=== PATIENT | female | born 1980 | race Caucasian/White ===

== ENCOUNTER 2022-10-09 22:33 | Observation (INO) ==
--- NOTE | 2022-10-09 22:57 | Emergency Department Note ---
History of Present Illness General Chief complaint: Kidney Stone Stated complaint: REF BY DOC,LARGE KIDNEY STONE,BLOCKING URETER Time Seen by Provider: 10/09/22 22:47 History of Present Illness 42-year-old female presents emergency department with an onset 3 days ago of left flank pain she felt that she was constipated she was doubled over in pain and had nausea. Patient started to use laxatives. Patient continued to have intermittent pain despite taking Tylenol and then was at her son's baseball game yesterday and had excruciating left flank pain and abdominal pain. Patient was also taking mag citrate. Patient states that she went to see her [facility] family physician today and had outpatient labs as well as a CT that showed an obstructed kidney stone. Patient has no prior history of kidney stones patient currently states that her pain is 0. Patient states its intermittent in nature its located in the left side there were no other mitigating or alleviating factors. Patient of note CT abdomen pelvis that was reported from [facility] today she has a 5 mm proximal ureteral stone with this present she also has a creatinine of 1.8 and appears to be positive for urinary tract infection. Home Medications Medication Instructions Recorded Confirmed Type cholecalciferol (vitamin D3) 25 25 mcg PO DAILY 11/17/20 10/09/22 History mcg (1,000 unit) capsule calcium polycarbophil 625 mg 1,250 mg PO DAILY 11/21/21 10/09/22 History tablet (Fiber Laxative (calcium polycarbophil)) cetirizine 10 mg capsule (All Day 10 mg PO DAILY PRN Congestion 11/21/21 10/09/22 History Allergy (cetirizine)) cider 1 tab PO DAILY 11/21/21 10/09/22 History yrgijww-Tx-kwsnzoslsmprtczm-tea 500 mg-100 mcg-300 mg-60 mg tab (Apple Cider Vinegar Plus) magnesium citrate 125 mg capsule 125 mg PO DAILY 11/21/21 10/09/22 History mecobalamin (vitamin B12) 1,000 1,000 mcg PO DAILY 11/21/21 10/09/22 History mcg chewable tablet omega 3,6,9 combination no.7 92 mg 92 mg PO DAILY 11/21/21 10/09/22 History (43 mg-22 [id number]) chew tablet furosemide 20 mg tablet (Lasix) 20 mg PO DAILY #90 tabs 12/18/21 10/09/22 Rx buspirone 10 mg tablet 10 mg PO BID #180 tabs 07/16/22 10/09/22 Rx lisinopril 10 mg tablet 15 mg PO DAILY #135 tabs 08/13/22 10/09/22 Rx bupropion HCl 100 mg tablet 100 mg PO DAILY #90 tabs 09/05/22 10/09/22 Rx semaglutide (weight loss) 0.25 0.25 mg (0.5 mL) subcut Q7D #2 mL 09/20/22 10/09/22 Rx mg/0.5 mL subcutaneous pen injector (Wegovy) ciprofloxacin HCl 500 mg tablet 500 mg PO BID 10 days #20 tabs 10/09/22 10/09/22 Rx (Cipro) Allergies Allergy/AdvReac Type Severity Reaction Status Date / Time No Known Allergies Allergy Verified 10/09/22 22:58 Past Med/Surg History Social History Smoking Status: Never smoker Preferred Language: Greek Feels Safe at Home: Yes Immunizations: Past medical history includes hypertension, past surgical history cholecystectomy, no prior history of ureterolithiasis; remainder of the past medical history was reviewed in the patient's chart by me Review of Systems A total of 10 systems reviewed and were otherwise negative Gastrointestinal: + abdominal pain and + nausea Genitourinary (Female): + flank pain Physical Exam Vital Signs Vital Signs - 24 hr 10/09/22 22:35 10/10/22 01:00 Temperature 36.2 C L Temperature Source Temporal Artery Scan Pulse Rate 83 Pulse Rate [Right Finger] 71 Pulse Rhythm Regular Pulse Strength Normal Respiratory Rate 19 14 Respiratory Effort / Characteristics Non-Labored Spontaneous Non-Labored Spontaneous Respiratory Depth Normal Normal Respiratory Pattern Regular Regular Blood Pressure 154/95 H Blood Pressure [Right Arm] 116/73 Blood Pressure Mean 114 Blood Pressure Mean [Right Arm] 87 Blood Pressure Position Sitting Pulse Oximetry 99 97 Oxygen Delivery Method Room Air Room Air Sepsis Recent Fever Within 48 Hours No Sepsis New/Unexplained Change in Mental Status N/A Sepsis Action Taken by Nursing No Action Required GENERAL: Patient is awake alert in no acute distress patient is resting com fortably and showing no signs of anxiety EYES: The conjunctivae are clear. The pupils are round and reactive. EARS, NOSE, MOUTH AND THROAT: The nose is without any evidence of any deformity. Mucous membranes are moist. Tongue is midline. NECK: The neck is nontender and supple. RESPIRATORY: Normal respiratory effort is noted there is no evidence of wheezing rhonchi or rales CARDIOVASCULAR: Regular rate and rhythm noted there no murmurs rubs or gallops normal S1 normal S2. GASTROINTESTINAL: The abdomen is soft. Abdomen is nontender. No rebound rigidity or guarding BACK: No midline tenderness or or step-off noted range of motion in flexion extension as well as rotation no signs of muscle spasm noted ; no CVAT noted MUSCULOSKELETAL/EXTREMITIES: There is no evidence of gross deformity full range of motion is noted in the hips and shoulders. SKIN: There is no obvious evidence of any rash. There are no petechiae, pallor or cyanosis noted. NEUROLOGIC: Patient is awake alert and oriented x3 strength is symmetric Course Reevaluation(s) Reevaluation #1: Patient is resting in no distress on repeat examination. Time: 23:52 Consultations Consultation #1: Case was discussed with Patrick from urology for consultation Time: 23:15 Consultation #2: Case was discussed with the [facility] hospitalist for admission for ure terolithiasis, DEBRA, urinary tract infection Time: 23:53 Administered Medications Discontinued Medications Sodium Chloride (Nss 1000ml) 1,000 mls @ 999 mls/hr IV .Q1H1M STA Stop: 10/09/22 23:59 Last Infusion: 10/10/22 01:23 Dose: 0 mls/hr Documented By: Admin: 10/10/22 00:04 Dose: 999 mls/hr Documented By: ARELIS Ceftriaxone Sodium (Rocephin) 2,000 mg in 70 mls @ 140 mls/hr IV NOW STA Stop: 10/09/22 23:28 Last Infusion: 10/10/22 00:42 Dose: 0 mls/hr Documented By: Admin: 10/10/22 00:04 Dose: 140 mls/hr Documented By: ARELIS Tamsulosin HCl (Tamsulosin Hcl 0.4 Mg Cap) 0.4 mg PO NOW ONE Stop: 10/09/22 23:34 Last Admin: 10/10/22 00:04 Dose: 0.4 mg Documented By: ARELIS Medical Decision Making Medical Records Attestation: I reviewed the patient's medical records. Home Medications Current Medication List: was personally reviewed by me Laboratory Data Attestation: I reviewed the patient's lab results. Reviewed external labs from today patient's creatinine is 1.8 patient has a urinary tract infection 10/09/22 23:32 10/09/22 23:32 Lab Results 10/09/22 10/09/22 10/10/22 Range/Units 23:32 23:32 00:05 WBC 5.44 (4.8-10.8) K/ul RBC 4.27 (4.20-5.40) M/uL Hgb 13.1 (12.0-16.0) g/dl Hct 38.6 (37.0-47.0) % MCV 90.4 (80.0-100.0) fL MCH 30.7 (25.0-34.0) pg MCHC 33.9 (32.0-36.0) g/dL RDW Std Deviation 38.8 (36.4-46.3) fL RDW Coeff of Claudia 11.9 (11.5-14.5) % Plt Count 208 (130-400) K/uL MPV 11.1 (9.4-12.4) fL Immature Gran % (Auto) 0.4 % Neut % (Auto) 60.2 % Lymph % (Auto) 28.3 % Snyder % (Auto) 8.3 % Eos % (Auto) 1.7 % Baso % (Auto) 1.1 % Neut # (Auto) 3.28 (1.40-6.50) K/uL Lymph # (Auto) 1.54 (1.2-3.4) K/uL Snyder # (Auto) 0.45 (0.11-0.59) K/uL Eos # (Auto) 0.09 (0-0.50) K/uL Baso # (Auto) 0.06 (0-0.2) K/uL Immature Gran # (Auto) 0.02 (0.01-0.20) K/uL Sodium 138 (136-145) mmol/L Potassium 4.3 (3.5-5.1) mmol/L Chloride 104 (98-107) mmol/L Carbon Dioxide 28 (21-32) mmol/L Anion Gap 6 (3-11) BUN 20 (6-23) mg/dl Creatinine 1.65 H (0.6-1.2) mg/dl Est Cr Clr Drug Dosing 43.3 ml/min Est GFR ( Amer) 43.3 ml/min Est GFR (Non-Af Amer) 37.4 ml/min BUN/Creatinine Ratio 12.1 (10-20) Glucose 96 (70-99(Fasting)) mg/dl Calcium 9.4 (8.6-10.3) mg/dl Total Bilirubin 0.6 (0.2-1.0) mg/dl AST 18 (13-39) U/L ALT 12 (7-52) U/L Alkaline Phosphatase 50 (34-104) U/L Total Protein 7.1 (6.0-8.3) gm/dl Albumin 4.1 (3.4-5.0) gm/dl Globulin 3.0 (2.5-4.0) gm/dl Albumin/Globulin Ratio 1.4 (0.9-2) Urine Color Dark Yellow Urine Appearance Cloudy A (Clear) Urine pH 5.5 (4.5-7.5) Ur Specific [place] 1.029 (1.000-1.030) Urine Protein 1+ H (Negative) Urine Glucose (UA) Negative (Negative) Urine Ketones Trace H (Negative) Urine Blood 3+ H (Negative) Urine Nitrite Negative (Negative) Urine Bilirubin 1+ H (Negative) Urine Urobilinogen Negative (Negative) Ur Leukocyte Esterase 1+ H (Negative) Urine WBC (Auto) 5-10 H (0-5) /hpf Urine RBC (Auto) >30 H (0-4) /hpf U Hyaline Cast (Auto) 1-5 (0-5) /lpf U Epithel Cells (Auto) >30 H (0-5) /lpf Urine Bacteria (Auto) Negative (Negative) SARS-CoV-2, RNA, NAAT (NEGATIVE) 10/10/22 Range/Units 00:15 WBC (4.8-10.8) K/ul RBC (4.20-5.40) M/uL Hgb (12.0-16.0) g/dl Hct (37.0-47.0) % MCV (80.0-100.0) fL MCH (25.0-34.0) pg MCHC (32.0-36.0) g/dL RDW Std Deviation (36.4-46.3) fL RDW Coeff of Claudia (11.5-14.5) % Plt Count (130-400) K/uL MPV (9.4-12.4) fL Immature Gran % (Auto) % Neut % (Auto) % Lymph % (Auto) % Snyder % (Auto) % Eos % (Auto) % Baso % (Auto) % Neut # (Auto) (1.40-6.50) K/uL Lymph # (Auto) (1.2-3.4) K/uL Snyder # (Auto) (0.11-0.59) K/uL Eos # (Auto) (0-0.50) K/uL Baso # (Auto) (0-0.2) K/uL Immature Gran # (Auto) (0.01-0.20) K/uL Sodium (136-145) mmol/L Potassium (3.5-5.1) mmol/L Chloride (98-107) mmol/L Carbon Dioxide (21-32) mmol/L Anion Gap (3-11) BUN (6-23) mg/dl Creatinine (0.6-1.2) mg/dl Est Cr Clr Drug Dosing ml/min Est GFR ( Amer) ml/min Est GFR (Non-Af Amer) ml/min BUN/Creatinine Ratio (10-20) Glucose (70-99(Fasting)) mg/dl Calcium (8.6-10.3) mg/dl Total Bilirubin (0.2-1.0) mg/dl AST (13-39) U/L ALT (7-52) U/L Alkaline Phosphatase (34-104) U/L Total Protein (6.0-8.3) gm/dl Albumin (3.4-5.0) gm/dl Globulin (2.5-4.0) gm/dl Albumin/Globulin Ratio (0.9-2) Urine Color Urine Appearance (Clear) Urine pH (4.5-7.5) Ur Specific [place] (1.000-1.030) Urine Protein (Negative) Urine Glucose (UA) (Negative) Urine Ketones (Negative) Urine Blood (Negative) Urine Nitrite (Negative) Urine Bilirubin (Negative) Urine Urobilinogen (Negative) Ur Leukocyte Esterase (Negative) Urine WBC (Auto) (0-5) /hpf Urine RBC (Auto) (0-4) /hpf U Hyaline Cast (Auto) (0-5) /lpf U Epithel Cells (Auto) (0-5) /lpf Urine Bacteria (Auto) (Negative) SARS-CoV-2, RNA, NAAT NEGATIVE (NEGATIVE) Imaging Data Attestation: I personally reviewed and interpreted this imaging study as follows: My Impression: Reviewed the patient's CT result from [facility] today stating a 5 mm proximal ureteral stone MDM Narrative Medical decision making differential diagnosis includes ureterolithiasis, bowel obstruction, dehydration, electrolyte abnormality, DEBRA, urinary tract infection Plan is to check repeat labs, give IV fluids give IV Rocephin, consult with urology Patient clinically has no evidence of septic shock at this time. Patient was started on IV fluids, Rocephin; patient will be admitted for further urologic evaluation and treatment Impression & Plan Ureterolithiasis, DEBRA (acute kidney injury), UTI (urinary tract infection) Discharge Plan Visit Data Chief Complaint: Kidney Stone Stated Complaint: REF BY DOC,LARGE KIDNEY STONE,BLOCKING URETER ED Provider: Valeriy Harris Discharge Problem: Ureterolithiasis, DEBRA (acute kidney injury), UTI (urinary tract infection) Patient Disposition: Admitted As Inpatient Forms Stand Alone Forms: My [facility] Prescriptions Prescriptions: No Action furosemide [Lasix] 20 mg tablet 20 mg PO DAILY Qty: 90 3RF buspirone 10 mg tablet 10 mg PO BID Qty: 180 0RF lisinopril 10 mg tablet 15 mg PO DAILY Qty: 135 3RF bupropion HCl 100 mg tablet 100 mg PO DAILY Qty: 90 0RF Wegovy 0.25 mg/0.5 mL pen injector 0.25 mg subcut Q7D Qty: 2 0RF Rx Instructions: [place] cholecalciferol (vitamin D3) 25 mcg (1,000 unit) capsule 25 mcg PO DAILY omega 3,6,9 combination no.7 92 mg (43 mg-22 [id number]) tablet,chewable 92 mg PO DAILY mecobalamin (vitamin B12) 1,000 mcg tablet,chewable 1,000 mcg PO DAILY Apple Cider Vinegar Plus [phone] [id number]-mg tablet 1 tab PO DAILY magnesium citrate 125 mg capsule 125 mg PO DAILY calcium polycarbophil [Fiber Laxative (ca polycarbo)] 625 mg tablet 1,250 mg PO DAILY All Day Allergy (cetirizine) 10 mg capsule 10 mg PO DAILY PRN (Reason: Congestion) ciprofloxacin HCl [Cipro] 500 mg tablet 500 mg PO BID 10 Days Qty: 20 0RF Rx Instructions: DID NOT START YET, PER PT'S MD. Referrals Referrals: Nathaniel Khoury DO [Primary Care Provider] -
[2022-10-09] MEDS ORDERED: SODIUM CHLORIDE 0.9% 1000ML 1,000 ML IV STA (22:59)
[2022-10-09] MEDS ORDERED: cefTRIAXone SODIUM 2,000 MG/70 ML BAG IV STA (22:59)
[2022-10-09] MEDS ORDERED: TAMSULOSIN HCL 0.4 MG CAP PO ONE (23:33)
--- NOTE | 2022-10-09 23:35 | Urology Consultation ---
Date of Consultation October 09, 2022 Assessment & Plan (1) Ureterolithiasis: I discussed with the treating emergency room physician and the patient is being admitted on the hospitalist service. From a urologic perspective we recommend proceeding as follows: Provide analgesics Provide antiemetics Provide Flomax for expulsive therapy. I have ordered the first dose of this medication Antibiotics in form of Rocephin have been ordered by the treating emergency room physician. A urine culture has been ordered and these results to be followed. Antibiotics be tailored based on these results Hydration measures with intravenous fluids to be provided Implement n.p.o. status. At the present time the patient is afebrile and normotensive without tachycardia and there is no leukocytosis noted on her previous labs. Although the patient does have an elevated creatinine I feel a trial of conservative stone passage with the measures outlined above is reasonable. We will keep her n.p.o. as noted above that way she will be prepared for cystoscopy if it is felt that this is required after reevaluation the morning of 10/10/2022 Additional recommendations will be based on her clinical course as unfolds History of Present Illness Reason for Consultation: Nephrolithiasis History of Present Illness This is a 42-year-old female who was referred to the emergency department by her family physician. The patient has been complaining of some left flank pain for approximately 3 days. The pain is nonradiating. She does not have any associated nausea or vomiting and she denies any fevers, shakes, or chills. She notes that the pain is improved when she takes Tylenol and Aleve. The patient felt as though she was just suffering from constipation and she took some zmjz-kda-iedbvyv home remedies with some relief. She does continue to have some left flank pain today so she saw her family physician who ordered an outpatient CT scan as well as some labs which are listed below. With her current presentation the patient denies any dysuria or hematuria. She says that she is only urinating small amounts. She has no prior history of kidney stones. Earlier today this patient had an outpatient CT scan at a [facility] facility. The CT scan showed patient had a 5 mm left-sided kidney stone in the proximal left ureter resulting in hydronephrosis. Patient also had labs performed as an outpatient that showed a CBC with normal white blood cell count, hemoglobin, hematocrit, platelet count. Chemistry profile showed sodium and potassium are both normal. Her BUN was normal but her creatinine which was usually normal is now 1.8. Patient did have a urinalysis that appears to be infected. There is no bacteria in the study, but the patient did have 1+ leukocyte Estrace and positive nitrites. There were 10-30 white blood cells per high-power field. She also had a test that was noted to be negative. Because of the findings on her labs and CT scan she was referred to the emergency department by her family physician. I did question the patient on her activities of daily living and the patient says that she does exercise daily oftentimes running. She says she does not have any limiting factors such as chest pain or exertional dyspnea. At the time of my interview she was resting comfortably in bed and she was in no distress Concerning past medical history the patient is treated for hypertension. Concerning past surgical history she has had a cholecystectomy Concerning social history she is a non-smoker Concerning family history she says her mother was recently diagnosed with aortic stenosis and was told that this is a hereditary condition. The patient could not provide any other specific details regarding this disease process. Allergies Allergy/AdvReac Type Severity Reaction Status Date / Time No Known Allergies Allergy Verified 10/09/22 22:58 Home Medications Medication Instructions Recorded Confirmed Type cholecalciferol (vitamin D3) 25 25 mcg PO DAILY 11/17/20 10/09/22 History mcg (1,000 unit) capsule calcium polycarbophil 625 mg 1,250 mg PO DAILY 11/21/21 10/09/22 History tablet (Fiber Laxative (calcium polycarbophil)) cetirizine 10 mg capsule (All Day 10 mg PO DAILY PRN Congestion 11/21/21 10/09/22 History Allergy (cetirizine)) cider 1 tab PO DAILY 11/21/21 10/09/22 History fvnonsz-Uj-kdalodtxwpeygyee-tea 500 mg-100 mcg-300 mg-60 mg tab (Apple Cider Vinegar Plus) magnesium citrate 125 mg capsule 125 mg PO DAILY 11/21/21 10/09/22 History mecobalamin (vitamin B12) 1,000 1,000 mcg PO DAILY 11/21/21 10/09/22 History mcg chewable tablet omega 3,6,9 combination no.7 92 mg 92 mg PO DAILY 11/21/21 10/09/22 History (43 mg-22 [id number]) chew tablet furosemide 20 mg tablet (Lasix) 20 mg PO DAILY #90 tabs 12/18/21 10/09/22 Rx buspirone 10 mg tablet 10 mg PO BID #180 tabs 07/16/22 10/09/22 Rx lisinopril 10 mg tablet 15 mg PO DAILY #135 tabs 08/13/22 10/09/22 Rx bupropion HCl 100 mg tablet 100 mg PO DAILY #90 tabs 09/05/22 10/09/22 Rx semaglutide (weight loss) 0.25 0.25 mg (0.5 mL) subcut Q7D #2 mL 09/20/22 10/09/22 Rx mg/0.5 mL subcutaneous pen injector (Wegovy) ciprofloxacin HCl 500 mg tablet 500 mg PO BID 10 days #20 tabs 10/09/22 10/09/22 Rx (Cipro) Patient History Social History Smoking Status: Never smoker Preferred Language: Malay Feels Safe at Home: Yes Review of Systems Constitutional: no fever and no chills Ear, Nose, Mouth, Throat: no ear pain Respiratory: no cough Cardiovascular: no chest pain Gastrointestinal: no nausea and no vomiting Genitourinary: as per Subjective / HPI Musculoskeletal: + back pain (Left flank) Integumentary: no rash Neurologic: no localized weakness Physical Exam Constitutional: WD/WN, vitals as above Eyes: no conjunctival abnormality ENMT: Ears: no hearing impairment and no external ear abnormality Mouth: no oropharynx abnormality Neck: trachea midline Respiratory: normal respiratory effort, lungs clear to auscultation Cardiovascular: Rate/Rhythm: regular rate and regular rhythm Vessels: dorsalis pedis pulses present and radial pulses present Gastrointestinal (Abdomen): Abdomen is soft and nonrigid. It is nondistended. There is no pain with palpation. Musculoskeletal: No calf tenderness Skin: no rashes Neurologic: moves all extremities Psychiatric: A+Ox3, euthymic affect Genitourinary: Slight CVA tenderness noted on the left with percussion Results & Data Vital Signs (Past 12 Hours) Vital Signs Temp Pulse Resp BP Pulse Ox O2 Del Method 10/09/22 22:35 36.2 C L 83 19 154/95 H 99 Room Air PG Care Time/CCT Total # of Minutes Spent Total Time Spent with Patient: Total time spent is greater than 50% in coordination of care (as documented) at patient's floor/unit and/or counseling patient: Coding Level of Care Code 42655 IN/OBS CONSULT LVL 5,80M Diagnoses Ureterolithiasis N20.1
[2022-10-09 23:55] LABS: Basophils # (auto) 0.06 K/uL (0-0.2); Basophils % (auto) 1.1 %; Eosinophils # (auto) 0.09 K/uL (0-0.50); Eosinophils % (auto) 1.7 %; Hematocrit (blood only) 38.6 % (37.0-47.0); Hemoglobin 13.1 g/dl (12.0-16.0); Immature Granulocytes # (auto) 0.02 K/uL (0.01-0.20); Immature Granulocytes % (auto) 0.4 %; Lymphocytes # (auto) 1.54 K/uL (1.2-3.4); Lymphocytes % (auto) 28.3 %; Mean Corpuscular Hemoglobin 30.7 pg (25.0-34.0); Mean Corpuscular Hgb Conc 33.9 g/dL (32.0-36.0); Mean Corpuscular Volume 90.4 fL (80.0-100.0); Mean Platelet Volume 11.1 fL (9.4-12.4); Monocytes # (auto) 0.45 K/uL (0.11-0.59); Monocytes % (auto) 8.3 %; Neutrophils # (auto) 3.28 K/uL (1.40-6.50); Neutrophils % (auto) 60.2 %; Platelet Count 208 K/uL (130-400); RDW Coefficient of Variation 11.9 % (11.5-14.5); RDW Standard Deviation 38.8 fL (36.4-46.3); Red Blood Count 4.27 M/uL (4.20-5.40); White Blood Count 5.44 K/ul (4.8-10.8)
[2022-10-10 00:07] LABS: Albumin Globulin Ratio 1.4 (0.9-2); Albumin Level 4.1 gm/dl (3.4-5.0); BUN Creatinine Ratio 12.1 (10-20); Bilirubin,Total 0.6 mg/dl (0.2-1.0); Calcium 9.4 mg/dl (8.6-10.3); Creatinine Clr Calc Pharmacy 43.3 ml/min; Est GFR (African American) 43.3 ml/min; Est GFR (Non-African American) 37.4 ml/min; Potassium 4.3 mmol/L (3.5-5.1); Total Protein 7.1 gm/dl (6.0-8.3)
--- NOTE | 2022-10-10 00:14 | History & Physical Report ---
Date of Service October 10, 2022 Assessment & Plan (1) Left ureteral stone: (2) Hydronephrosis of left kidney: (3) DEBRA (acute kidney injury): (4) UTI (urinary tract infection): (5) HTN (hypertension): (6) Situational anxiety: Plan 5 mm left ureteral stone/left hydroureteronephrosis- NPO NSS at 100 mils per hour Follow urine culture and sensitivity Ceftriaxone 2 g IV daily Acetaminophen 650 mg p.o. every 6 hours as needed for mild pain or fever Morphine sulfate 2 mg IV every 3 hours as needed for moderate to severe pain Flomax 0.4 mg p.o. now Consult to urology Acute kidney injury- Creatinine 1.83 on admission, with base 1.01 Hold furosemide and lisinopril IV fluids as noted above Repeat laboratories in a.m. Anxiety- Continue buspirone 10 mg p.o. twice daily and bupropion 100 mg p.o. daily Weight loss- Patient is on semaglutide weekly in the outpatient setting for weight management, not diabetes History of Present Illness Chief Complaint: The patient presents to the emergency department with complaint of 3 days of left-sided flank pain, that she interpreted as constipation causing her to have nausea, and had no improvement after using bowel regimen successfully Primary Care Provider: Nathaniel Khoury DO The patient is a 42-year-old female who initially developed left flank pain about 3 days ago, that was accompanied with nausea. She tried using laxatives which helped move her bowels, but did not relieve the pain. She went to see her PCP due to a worsening of the pain, was sent for a CT scan of abdomen and pel vis, which revealed a 5 mm left ureteral stone and left hydronephrosis. She was then referred to the ED for assessment. She does report that the pain initially had been improved by Tylenol, but the pain and nausea returned as soon as the Tylenol wore off Allergies Allergy/AdvReac Type Severity Reaction Status Date / Time No Known Allergies Allergy Verified 10/09/22 22:58 Home Medications Medication Instructions Recorded Confirmed Type cholecalciferol (vitamin D3) 25 25 mcg PO DAILY 11/17/20 10/09/22 History mcg (1,000 unit) capsule calcium polycarbophil 625 mg 1,250 mg PO DAILY 11/21/21 10/09/22 History tablet (Fiber Laxative (calcium polycarbophil)) cetirizine 10 mg capsule (All Day 10 mg PO DAILY PRN Congestion 11/21/21 10/09/22 History Allergy (cetirizine)) cider 1 tab PO DAILY 11/21/21 10/09/22 History uictoif-Mk-qbobnhhcuglcyees-tea 500 mg-100 mcg-300 mg-60 mg tab (Apple Cider Vinegar Plus) magnesium citrate 125 mg capsule 125 mg PO DAILY 11/21/21 10/09/22 History mecobalamin (vitamin B12) 1,000 1,000 mcg PO DAILY 11/21/21 10/09/22 History mcg chewable tablet omega 3,6,9 combination no.7 92 mg 92 mg PO DAILY 11/21/21 10/09/22 History (43 mg-22 [id number]) chew tablet furosemide 20 mg tablet (Lasix) 20 mg PO DAILY #90 tabs 12/18/21 10/09/22 Rx buspirone 10 mg tablet 10 mg PO BID #180 tabs 07/16/22 10/09/22 Rx lisinopril 10 mg tablet 15 mg PO DAILY #135 tabs 08/13/22 10/09/22 Rx bupropion HCl 100 mg tablet 100 mg PO DAILY #90 tabs 09/05/22 10/09/22 Rx semaglutide (weight loss) 0.25 0.25 mg (0.5 mL) subcut Q7D #2 mL 09/20/22 10/09/22 Rx mg/0.5 mL subcutaneous pen injector (Wegovy) ciprofloxacin HCl 500 mg tablet 500 mg PO BID 10 days #20 tabs 10/09/22 10/09/22 Rx (Cipro) Past Med/Surg History Social History Smoking Status: Never smoker Hx Alcohol Use: No Hx Substance Use: No Preferred Language: Angolan Communication Ability: Effective 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 Beliefs That Will Affect Care: None Current Living Situation: Spouse Other Information That Helps Us Care for You: No Feels Safe at Home: Yes Safety Concerns: Feels Safe At This Time Assistive Devices: Contacts and Glasses Review of Systems Review of Systems: The patient denies chest pain, palpitations, shortness of breath, dyspnea on exertion, cough, lower extremity swelling, sore throat, fevers, chills, sweats, vomiting, blood in urine or stool, dysuria, urinary frequency or urgency, lightheadedness, dizziness, headache, memory loss, loss of consciousness, rash, abnormal bruising or bleeding, imbalance, focal or generalized weakness, numbness or tingling in arms or legs, generalized arthralgias or myalgias, neck pain, or night sweats. The review of systems is otherwise negative other than for that already noted above, and at least 10 systems have been reviewed. Physical Exam Physical Exam: The patient is awake, alert and oriented 3, well developed and well nourished, normocephalic and atraumatic, lying in bed and in no acute distress. HEENT--PERRL, EOMI, mucous membranes and oropharynx dry. Neck--supple. No JVD. No bruits. Thyroid normal, trachea midline, no adenopathy. Heart--normal S1 and S2. No murmurs, rubs or gallops. Lungs--clear bilaterally, no respiratory distress, no accessory muscle use. Abdomen--normal bowel sounds and soft. Nontender. Nondistended, no hernias or masses, no organomegaly. Extremities--no cyanosis or clubbing. No edema. There are good distal pulses b/l. Dermatologic--normal skin turgor, normal color, no abnormal lymph nodes, no rash. Neurologic--cranial nerves II through XII grossly intact. Rheumatologic--normal range of motion. Psychiatric--normal affect. Results & Data Results & Data Vital Signs (Past 12 Hours) Vital Signs Temp Pulse Resp BP Pulse Ox O2 Del Method 10/09/22 22:35 36.2 C L 83 19 154/95 H 99 Room Air Laboratory Results Laboratory Results WBC 5.44 K/ul (4.8-10.8) 10/09/22 23:32 RBC 4.27 M/uL (4.20-5.40) 10/09/22 23:32 Hgb 13.1 g/dl (12.0-16.0) 10/09/22 23:32 Hct 38.6 % (37.0-47.0) 10/09/22 23:32 MCV 90.4 fL (80.0-100.0) 10/09/22 23:32 MCH 30.7 pg (25.0-34.0) 10/09/22 23:32 MCHC 33.9 g/dL (32.0-36.0) 10/09/22 23:32 RDW Std Deviation 38.8 fL (36.4-46.3) 10/09/22 23:32 RDW Coeff of Claudia 11.9 % (11.5-14.5) 10/09/22 23:32 Plt Count 208 K/uL (130-400) 10/09/22 23:32 MPV 11.1 fL (9.4-12.4) 10/09/22 23:32 Immature Gran % (Auto) 0.4 % 10/09/22 23:32 Neut % (Auto) 60.2 % 10/09/22 23:32 Lymph % (Auto) 28.3 % 10/09/22 23:32 Wolfe % (Auto) 8.3 % 10/09/22 23:32 Eos % (Auto) 1.7 % 10/09/22 23:32 Baso % (Auto) 1.1 % 10/09/22 23:32 Neut # (Auto) 3.28 K/uL (1.40-6.50) 10/09/22 23:32 Lymph # (Auto) 1.54 K/uL (1.2-3.4) 10/09/22 23:32 Wolfe # (Auto) 0.45 K/uL (0.11-0.59) 10/09/22 23:32 Eos # (Auto) 0.09 K/uL (0-0.50) 10/09/22 23:32 Baso # (Auto) 0.06 K/uL (0-0.2) 10/09/22 23:32 Immature Gran # (Auto) 0.02 K/uL (0.01-0.20) 10/09/22 23:32 Sodium 138 mmol/L (136-145) 10/09/22 23:32 Potassium 4.3 mmol/L (3.5-5.1) 10/09/22 23:32 Chloride 104 mmol/L (98-107) 10/09/22 23:32 Carbon Dioxide 28 mmol/L (21-32) 10/09/22 23:32 Anion Gap 6 (3-11) 10/09/22 23:32 BUN 20 mg/dl (6-23) 10/09/22 23:32 Creatinine 1.65 mg/dl (0.6-1.2) H 10/09/22 23:32 Est Cr Clr Drug Dosing 43.3 ml/min 10/09/22 23:32 Est GFR ( Amer) 43.3 ml/min 10/09/22 23:32 Est GFR (Non-Af Amer) 37.4 ml/min 10/09/22 23:32 BUN/Creatinine Ratio 12.1 (10-20) 10/09/22 23:32 Glucose 96 mg/dl (70-99(Fasting)) 10/09/22 23: Calcium 9.4 mg/dl (8.6-10.3) 10/09/22 23:32 Total Bilirubin 0.6 mg/dl (0.2-1.0) 10/09/22 23:32 AST 18 U/L (13-39) 10/09/22 23:32 ALT 12 U/L (7-52) 10/09/22 23:32 Alkaline Phosphatase 50 U/L (34-104) 10/09/22 23:32 Total Protein 7.1 gm/dl (6.0-8.3) 10/09/22 23:32 Albumin 4.1 gm/dl (3.4-5.0) 10/09/22 23:32 Globulin 3.0 gm/dl (2.5-4.0) 10/09/22 23:32 Albumin/Globulin Ratio 1.4 (0.9-2) 10/09/22 23:32 Urine Color Dark Yellow 10/10/22 00:05 Urine Appearance Cloudy (Clear) A 10/10/22 00:05 Urine pH 5.5 (4.5-7.5) 10/10/22 00:05 Ur Specific [place] 1.029 (1.000-1.030) 10/10/22 00:05 Urine Protein 1+ (Negative) H 10/10/22 00:05 Urine Glucose (UA) Negative (Negative) 10/10/22 00:05 Urine Ketones Trace (Negative) H 10/10/22 00:05 Urine Blood 3+ (Negative) H 10/10/22 00:05 Urine Nitrite Negative (Negative) 10/10/22 00:05 Urine Bilirubin 1+ (Negative) H 10/10/22 00:05 Urine Urobilinogen Negative (Negative) 10/10/22 00:05 Ur Leukocyte Esterase 1+ (Negative) H 10/10/22 00:05 Urine WBC (Auto) 5-10 /hpf (0-5) H 10/10/22 00:05 Urine RBC (Auto) >30 /hpf (0-4) H 10/10/22 00:05 U Hyaline Cast (Auto) 1-5 /lpf (0-5) 10/10/22 00:05 U Epithel Cells (Auto) >30 /lpf (0-5) H 10/10/22 00:05 Urine Bacteria (Auto) Negative (Negative) 10/10/22 00:05 SARS-CoV-2, RNA, NAAT NEGATIVE (NEGATIVE) 10/10/22 00:15 Code Status & VTE Plan Code Status Full code VTE Prophylaxis Plan VTE Prophylaxis will be ordered: Yes PG Care Time/CCT Total # of Minutes Spent Total Time Spent with Patient: Total time spent is greater than 50% in coordination of care (as documented) at patient's floor/unit and/or counseling patient: Coding Level of Care Code 78015 INT INP/OBS CARE 3/75MIN Diagnoses Left ureteral stone N20.1 Hydronephrosis of left kidney N13.30 DEBRA (acute kidney injury) N17.9 UTI (urinary tract infection) N39.0 HTN (hypertension) I10 Situational anxiety F41.8
[2022-10-10 00:25] LABS: Appearance Urine Cloudy (Clear); Bacteria Urine Automated Negative (Negative); Blood Urine 3+ (Negative); Color Urine Dark Yellow; Epithelial Cell Urine Auto >30 /lpf (0-5); Glucose Urine UA Negative (Negative); Ketones Urine Trace (Negative); Leukocyte Esterase Urine 1+ (Negative); Nitrite Urine Negative (Negative); Protein Urine 1+ (Negative); RBC Urine Automated >30 /hpf (0-4); Specific Gravity Urine 1.029 (1.000-1.030); Urobilinogen Urine Negative (Negative); pH Urine 5.5 (4.5-7.5)
[2022-10-10 00:28] LABS: Bilirubin Urine 1+ (Negative)
[2022-10-10] MEDS ORDERED: ONDANSETRON INJ 2 MG/ML 2 ML VIAL IV PRN ×2 (02:31→11:58)
[2022-10-10] MEDS ORDERED: MoRPHine SULFATE 2 MG/ML CARP IV PRN (02:31)
[2022-10-10] MEDS ORDERED: ACETAMINOPHEN 325 MG TAB PO PRN (02:31)
[2022-10-10] MEDS: SODIUM CHLORIDE 0.9% 1000ML 1,000 ML IV SCH ×2 (02:48→15:46)
[2022-10-10] MEDS: busPIRone 5 MG TAB PO SCH ×2 (03:11→07:34)
--- NOTE | 2022-10-10 07:21 | Urology Progress Note ---
I have discussed Ms. Gant's case with MIRELLA Freeman and agree with the above documentation. We will plan for cystoscopy and left ureteral stent placement to provide drainage of the left kidney and hopefully help with pain. -Laith Hare MD. Date of Service October 10, 2022 Assessment & Plan (1) Left ureteral stone: (2) UTI (urinary tract infection): Plan: Follow-up of left proximal ureteral stone and suspected UTI Afebrile with stable vitals Today's labs showcreatinine 1.65 (previously 1.83), no leukocytosis UA 10/09 suspicious for infection with positive nitrates Urine and blood cultures are pending - follow Continue with broad-spectrum antibiotics and narrow per sensitivity data when available We discussed options for stone management including trial of passage vs surgical intervention inpatient with insertion of left ureteral stent vs outpatient options for ESWL or ureteroscopy, laser lithotripsy, and stent placement. Procedures, success rates, risks, benefits and clinical courses reviewed. Stone free rates were also discussed as well as possibility of multiple procedures. Ureteral stents were discussed as well as post-operative issues and pain management. Patient would like to proceed with surgical intervention for left ureteral stent placement today. We discussed need for stone treatment at a later date after acute infection is resolved. Expected clinical course reviewed, all questions answered. Findings reviewed with Dr. Hare. Given her DEBRA and suspected urinary tract infection in the context of an obstructing 5 mm left ureteral stone, will proceed with OR for cystoscopy, Left retrograde pyelogram and Left stent placement. Risks and benefits to be reviewed with patient by Dr. Hare. OR notified. Urine negative on 10/09/2022. Will cover with scheduled IV ceftriaxone preoperatively. Keep n.p.o. for procedure. Continue supportive care, antibiotics and medical management per medicine service. Admission and Anticipated Discharge Date Admission Date: October 10, 2022 Subjective Patient seen and examined at bedside this morning. She is awake and resting in bed. No acute issues overnight. Currently without flank or abdominal pain. Voiding spontaneously. Denies dysuria or hematuria. No nausea or vomiting. No fever or chills. She is n.p.o. currently. Review of Systems Constitutional: as per Subjective / HPI Respiratory: no dyspnea Cardiovascular: no chest pain Gastrointestinal: as per Subjective / HPI Genitourinary: as per Subjective / HPI Physical Exam Constitutional: well developed and well nourished; no acute distress and not ill appearing Neck: normal visual inspection Respiratory: normal respiratory effort and able to speak in complete sentences; no respiratory distress and no labored breathing Cardiovascular: Extremities: no pedal edema Gastrointestinal (Abdomen): Inspection/Auscultation: abdomen normal to inspection; abdomen not distended Percussion/Palpation: abdomen soft; abdomen nontender and no guarding Musculoskeletal: Head/Neck/Chest: normocephalic and head atraumatic Neurologic: moves all extremities and awake Psychiatric: Orientation: alert, oriented x 3 and cooperative Eye Contact: good eye contact Genitourinary: no CVA tenderness Results & Data Vital Signs (Past 12 Hours) Vital Signs Temp Pulse Pulse Resp BP BP Pulse Ox 10/10/22 02:20 36.7 C 71 16 119/83 100 10/10/22 01:00 71 14 116/73 97 10/09/22 22:35 36.2 C L 83 19 154/95 H 99 O2 Del Method 10/10/22 02:20 Room Air 10/10/22 01:00 Room Air 10/09/22 22:35 Room Air PG Care Time/CCT Total # of Minutes Spent Total Time Spent with Patient: Total time spent is greater than 50% in coordination of care (as documented) at patient's floor/unit and/or counseling patient: Coding Level of Care Code 77730 SUB INP/OBS CARE 05/30MIN Diagnoses Left ureteral stone N20.1 UTI (urinary tract infection) N39.0
[2022-10-10] MEDS ORDERED: buPROPion HCl 100 MG TABLET PO SCH (09:00)
[2022-10-10] MEDS ORDERED: FAMOTIDINE 20 MG in SYRINGE 3 ML IV SCH (09:00)
--- NOTE | 2022-10-10 11:33 | Anesthesiology Consultation ---
Date of Service October 10, 2022 Assessment & Plan (1) Encounter for pre-operative examination: Chart Review Chart Review: Acceptable Risk for Surgery and Patient NOT seen in Pre Admission Testing Consults Requested none History Surgery Operation Date: 10/10/22 11:55 Proposed Procedures p Cystoscopy Retrograde Pyelogram, Left Stent Placement - Laith Hare MD Height/Weight Height: 5 ft 4 in Weight: 76.2 kg Allergies Allergy/AdvReac Type Severity Reaction Status Date / Time No Known Allergies Allergy Verified 10/09/22 22:58 Medications Home Medications Medication Instructions Recorded Confirmed Last Taken cholecalciferol (vitamin D3) 25 25 mcg PO DAILY 11/17/20 10/09/22 10/09/22 mcg (1,000 unit) capsule calcium polycarbophil 625 mg 1,250 mg PO DAILY 11/21/21 10/09/22 10/09/22 tablet (Fiber Laxative (calcium polycarbophil)) cetirizine 10 mg capsule (All Day 10 mg PO DAILY PRN Congestion 11/21/21 10/09/22 Unknown Allergy (cetirizine)) cider 1 tab PO DAILY 11/21/21 10/09/22 10/09/22 oirsuio-Ao-utfdodwhoecghemj-tea 500 mg-100 mcg-300 mg-60 mg tab (Apple Cider Vinegar Plus) magnesium citrate 125 mg capsule 125 mg PO DAILY 11/21/21 10/09/22 10/09/22 mecobalamin (vitamin B12) 1,000 1,000 mcg PO DAILY 11/21/21 10/09/22 10/09/22 mcg chewable tablet omega 3,6,9 combination no.7 92 mg 92 mg PO DAILY 11/21/21 10/09/22 10/09/22 (43 mg-22 [id number]) chew tablet furosemide 20 mg tablet (Lasix) 20 mg PO DAILY #90 tabs 12/18/21 10/09/22 10/09/22 buspirone 10 mg tablet 10 mg PO BID #180 tabs 07/16/22 10/09/22 10/09/22 08:00 lisinopril 10 mg tablet 15 mg PO DAILY #135 tabs 08/13/22 10/09/22 10/09/22 bupropion HCl 100 mg tablet 100 mg PO DAILY #90 tabs 09/05/22 10/09/22 10/09/22 semaglutide (weight loss) 0.25 0.25 mg (0.5 mL) subcut Q7D #2 mL 09/20/2210/03/22 mg/0.5 mL subcutaneous pen injector (Benjamin) ciprofloxacin HCl 500 mg tablet 500 mg PO BID 10 days #20 tabs 10/09/22 10/09/22 Unknown (Cipro) Active Medications Generic Name Dose Route Start Last Admin Trade Name Freq PRN Reason Stop Dose Admin Acetaminophen 650 mg 10/10/22 02:31 10/10/22 06:28 Acetaminophen 325 Mg Tab PO 11/09/22 02:30 650 mg Q4H PRN Administration pain/fever Bupropion HCl 100 mg 10/10/22 09:00 10/10/22 07:34 Bupropion Hcl 100 Mg Tablet PO 11/09/22 08:59 100 mg DAILY DEMETRIS Administration Buspirone HCl 10 mg 10/10/22 02:31 10/10/22 07:34 Buspirone 5 Mg Tab PO 11/09/22 02:30 10 mg BID DEMETRIS Administration Famotidine 20 mg/ Syringe 5 mls @ 2.5 mls/min 10/10/22 09:00 10/10/22 07:37 IV 11/09/22 08:59 2.5 mls/min Q12 DEMETRIS Administration Sodium Chloride 1,000 mls @ 100 mls/hr 10/10/22 02:31 10/10/22 11:07 Nss 1000ml IV 11/09/22 02:30 0 mls/hr .Q10H DEMETRIS Infusion NPO Date Last Intake of Fluids: 10/09/22 Time Last Intake of Fluids: 23:59 Date Last Intake of Solids: 10/09/22 Time Last Intake of Solids: 23:59 Social History Smoking Status: Never smoker Hx Alcohol Use: No Hx Substance Use: No substance use type: does not use Physical Exam Vital Signs Last Vital Signs Temp 97.9 F 10/10/22 07:43 Pulse 80 10/10/22 07:43 Resp 14 10/10/22 07:43 BP 110/70 10/10/22 07:43 Pulse Ox 94 10/10/22 07:43 O2 Del Method Room Air 10/10/22 07:43 Testing Laboratory Results 10/09/22 23:32 10/09/22 23:32 Urine Color Dark Yellow 10/10/22 00:05 Urine Appearance Cloudy (Clear) A 10/10/22 00:05 Urine pH 5.5 (4.5-7.5) 10/10/22 00:05 Ur Specific [place] 1.029 (1.000-1.030) 10/10/22 00:05 Urine Protein 1+ (Negative) H 10/10/22 00:05 Urine Glucose (UA) Negative (Negative) 10/10/22 00:05 Urine Ketones Trace (Negative) H 10/10/22 00:05 Urine Nitrite Negative (Negative) 10/10/22 00:05 Ur Leukocyte Esterase 1+ (Negative) H 10/10/22 00:05 Urine WBC (Auto) 5-10 /hpf (0-5) H 10/10/22 00:05 Urine RBC (Auto) >30 /hpf (0-4) H 10/10/22 00:05 U Hyaline Cast (Auto) 1-5 /lpf (0-5) 10/10/22 00:05 U Epithel Cells (Auto) >30 /lpf (0-5) H 10/10/22 00:05 Urine Bacteria (Auto) Negative (Negative) 10/10/22 00:05
[2022-10-10] MEDS ORDERED: LIDOCAINE 2% 2 ML VIAL/AMP(20MG/ML) INFIL ONE (11:37)
[2022-10-10] MEDS ORDERED: PROPOFOL IV EMULSION 10 MG/ML 20 ML VIAL IV ONE (11:37)
[2022-10-10] MEDS ORDERED: fentaNYL citrate PF 100 MCG/2 ML VIAL ONE (11:37)
[2022-10-10] MEDS ORDERED: MIDAZOLAM HCL 1 MG/ML 2ML VIAL ONE (11:37)
[2022-10-10] MEDS ORDERED: ePHEDrine sulfate 50 MG/ML AMP IV PRN (11:58)
[2022-10-10] MEDS ORDERED: ATROPINE SULFATE 0.1 MG/ML 10ML SYR IV PRN (11:58)
[2022-10-10] MEDS ORDERED: fentaNYL citrate PF 100 MCG/2 ML VIAL IV PRN (11:58)
--- NOTE | 2022-10-10 13:44 | Operative Report ---
PG Post Operative Report Pre & Post Diagnosis Operation Date: 10/10/22 11:55 Preoperative diagnosis: Left ureteral stone Postoperative diagnosis: Left ureteral stone I identified the patient and participated in the time-out.: Yes Procedure Operation Date: 10/10/22 11:55 Cystoscopy, left retrograde pyelogram, left ureteral stent placement Surgeon Laith Hare MD [employer] Loader None Estimated Blood Loss 0 Findings Consistent with Post-Op Diagnosis Specimens Urine from left kidney for culture Drains 6 [place] by 24 cm double-J ureteral stent in the left ureter Anesthesia Type MAC Complications none Disposition Accompanied Patient To Recovery: Yes Disposition: Recovery Room Indications This is a 42-year-old female who presented to the emergency department with left-sided flank pain and CT scan identifying a left ureteral stone. She is being brought to the OR for left ureteral stent placement of concern for possible infection and for pain control. Description of Procedure The patient was identified in the holding area and informed consent was confirmed. She was marked on the left side, then was taken to the operating room where anesthesia was initiated. She was placed in the dorsal lithotomy position with all pressure points appropriately padded. She was prepped and draped in the usual sterile fashion and a preoperative timeout was performed. A well-lubricated cystoscope was inserted per urethra and panendoscopy was performed. The urethra was normal in appearance. The bladder was of normal size with ureteral orifices in orthotopic position. The left ureteral orifice was identified and cannulated with a 5 [place] open- ended catheter. A retrograde pyelogram was performed demonstrating the distal ureter was normal in course and caliber. There was a filling defect in the mid ureter suspicious for the stone. There was mild hydronephrosis of the kidney.. A sensor wire was advanced to the level of the kidney under fluoroscopic g uidance. Over the wire, a 6 [place] x 24 centimeter double-J ureteral stent was advanced. When the wire was removed, the proximal curl was visualized in the kidney with x-ray, and the distal curl visualized in the bladder with the cystoscope. There was drainage of turbid urine from the left kidney. A sample of this was collected and sent for urine culture. At this point the bladder was drained and all instrumentation was removed. The patient was then awakened from anesthesia and was brought to the PACU in stable condition. I attest to the content of the Intraoperative Record and any orders documented therein. Any exceptions are noted below.
[2022-10-10] MEDS ORDERED: DIATRIZOATE MEGLUMINE 30% 100ML VIAL INSTIL ONE (13:54)
--- NOTE | 2022-10-10 14:06 | Fluoroscopy Report ---
INTRAOPERATIVE RADIOGRAPHS CLINICAL HISTORY: Left ureteral stent placement. Fluoro time: 7 seconds. Ka,r: 1.15 mGy FINDINGS: 3 spot fluoroscopic views of the left abdomen are obtained. There is contrast opacification of the left renal collecting system and ureter. No significant hydronephrosis is seen. The final raghu ge shows the proximal end of a left ureteral stent in appropriate position. Question a calcification along the proximal stent. IMPRESSION: Intraoperative images from a left ureteral stent placement procedure as above. Electronically signed by: Timothy Ahn M.D. 10/10/2022 2:04 PM
--- NOTE | 2022-10-10 14:09 | Anesthesiology Progress Note ---
Date of Service October 10, 2022 Anesthesia Post Procedure Vital Signs Vital Signs: Temp Pulse Pulse Pulse Resp BP BP 10/10/22 14:00 85 20 114/77 10/10/22 13:52 97.3 F L 88 18 108/68 10/10/22 11:27 98.6 F 79 20 10/10/22 07:43 97.9 F 80 14 10/10/22 02:20 98.1 F 71 16 10/10/22 01:00 71 14 10/09/22 22:35 97.2 F L 83 19 154/95 H BP Pulse Ox O2 Del Method 10/10/22 14:00 97 Room Air 10/10/22 13:52 97 Room Air 10/10/22 11:27 115/75 98 Room Air 10/10/22 07:43 110/70 94 Room Air 10/10/22 02:20 119/83 100 Room Air 10/10/22 01:00 116/73 97 Room Air 10/09/22 22:35 99 Room Air Transfer of Care Handoff Completed per policy Notes Mental Status: alert / awake / arousable and participated in evaluation Patient Amnestic to Procedure: Yes Nausea / Vomiting: adequately controlled Pain: adequately controlled Airway Patency, RR, SpO2: stable & adequate BP & HR: stable & adequate Hydration State: stable & adequate Anesthetic Complications: no major complications apparent and Pt Satisfied with anesthetic care
--- NOTE | 2022-10-10 14:17 | Anesthesiology Progress Note ---
Date of Service October 10, 2022 Anesthesia Post Procedure Vital Signs Vital Signs: Temp Pulse Pulse Pulse Resp BP BP 10/10/22 14:10 86 14 105/74 10/10/22 14:00 85 20 114/77 10/10/22 13:52 36.3 C L 88 18 108/68 10/10/22 11:27 37 C 79 20 10/10/22 07:43 36.6 C 80 14 10/10/22 02:20 36.7 C 71 16 10/10/22 01:00 71 14 10/09/22 22:35 36.2 C L 83 19 154/95 H BP Pulse Ox O2 Del Method 10/10/22 14:10 96 Room Air 10/10/22 14:00 97 Room Air 10/10/22 13:52 97 Room Air 10/10/22 11:27 115/75 98 Room Air 10/10/22 07:43 110/70 94 Room Air 10/10/22 02:20 119/83 100 Room Air 10/10/22 01:00 116/73 97 Room Air 10/09/22 22:35 99 Room Air Transfer of Care Handoff Completed per policy Notes Mental Status: alert / awake / arousable Patient Amnestic to Procedure: Yes Nausea / Vomiting: adequately controlled Pain: adequately controlled Airway Patency, RR, SpO2: stable & adequate BP & HR: stable & adequate Hydration State: stable & adequate Anesthetic Complications: no major complications apparent
--- NOTE | 2022-10-10 15:42 | Discharge Summary ---
Date of Service October 10, 2022 Admission HPI Per Admitting Provider The patient is a 42-year-old female who initially developed left flank pain about 3 days ago, that was accompanied with nausea. She tried using laxatives which helped move her bowels, but did not relieve the pain. She went to see her PCP due to a worsening of the pain, was sent for a CT scan of abdomen and pelvis, which revealed a 5 mm left ureteral stone and left hydronephrosis. She was then referred to the ED for assessment. She does report that the pain initially had been improved by Tylenol, but the pain and nausea returned as soon as the Tylenol wore off Admission Exam Per Admitting Provider The patient is awake, alert and oriented 3, well developed and well nourished, normocephalic and atraumatic, lying in bed and in no acute distress. HEENT--PERRL, EOMI, mucous membranes and oropharynx dry. Neck--supple. No JVD. No bruits. Thyroid normal, trachea midline, no adenopathy. Heart--normal S1 and S2. No murmurs, rubs or gallops. Lungs--clear bilaterally, no respiratory distress, no accessory muscle use. Abdomen--normal bowel sounds and soft. Nontender. Nondistended, no hernias or masses, no organomegaly. Extremities--no cyanosis or clubbing. No edema. There are good distal pulses b/l. Dermatologic--normal skin turgor, normal color, no abnormal lymph nodes, no rash. Neurologic--cranial nerves II through XII grossly intact. Rheumatologic--normal range of motion. Psychiatric--normal affect. Principal Diagnosis Left ureteral stone Discharge Exam Constitutional WD/WN, vitals as above Neck trachea midline, no thyromegaly Respiratory normal respiratory effort, lungs clear to auscultation Cardiovascular RRR, no murmur, no edema Extremities: normal capillary refill; no calf tenderness and no edema Gastrointestinal (Abdomen) Inspection/Auscultation: normal bowel sounds Percussion/Palpation: + abdomen tender and abdomen soft; abdomen not rigid mild tenderness left abd Psychiatric A+Ox3, euthymic affect Discharge Data Allergies Allergy/AdvReac Type Severity Reaction Status Date / Time No Known Allergies Allergy Verified 10/18/22 07:30 Consultations 10/09/22 23:51 ED Decision to Admit Stat Procedures Performed Operation Date: 10/10/22 11:55 Actual Procedures p Cystoscopy Retrograde Pyelogram, Left Stent Placement(Left) - Laith Hare MD Ordered Studies 10/10/22 [place] retrograde includes kub Routine Hospital Course (1) Left ureteral stone: Acute 5 mm left ureteral stone/left hydroureteronephrosis- S/P cystoscopy left retrograde pyelogram Left stent 10/10/22 Await urine C&S Had Ceftriaxone IV will discharge on Cefdinir 300mg BID for 10 days Acetaminophen 650 mg p.o. every 6 hours as needed for mild pain or fever (2) Hydronephrosis of left kidney: As above (3) DEBRA (acute kidney injury): Acute repeat BMP in 1 week (4) UTI (urinary tract infection): Rx Cefdinir 300mg BID for 10 days await urine C&S (5) HTN (hypertension): Chronic and stable Continue Lasix and Lisinopril (6) Situational anxiety: Chronic stable Cont buspirone 10 mg p.o. twice daily and bupropion 100 mg p.o. daily Plan Weight loss- Patient is on semaglutide weekly in the outpatient setting for weight management, not diabetes Patient wishes to be discharged to home ( is admitted to [facility]) aware to repeat labs in 1 weeks and follow up with PCP, urology Finish Cefdinir 300mg one BID for 10 days Total Time Total Time Spent Total Time Spent (In Minutes): 40 Discharge Plan Discharge Items Patient Disposition: Home - Self-Care Reason For Visit: LEFT URETERAL STONE, LEFT HYDRONEPHROSIS, DEBRA Discharge Diagnosis: left ureteral stone Condition on Discharge: Fair Activity: Resume your previous activity Lifting: Gradually increase as tolerated Driving/Machine Use: Resume 1 day after discharge Weightbearing: Full weightbearing Non-emergency contact: Primary Care Provider and Urologist Call non-emergency contact if: you have any medication questions, your symptoms worsen, your pain is worsening and your temperature is above 101.5 Follow-up/Referrals: Nathaniel Khoury DO [Primary Care Provider] - 10/17/22 9:00 am Diet: Regular Addtl Attending Provider Instructions: You had left ureteral stone and underwent a surgical procedure to remove the stone and place a stent Urine culture is pending You will need to take Cefdinir 300mg one 2 times per day for 10 days Follow up with your family doctor continue all your regular home medications Pending Studies at Discharge: Yes Studies:: urine culture pending Stand-Alone Forms: My [facility] Medications and DC Order Prescriptions: New cefdinir 300 mg capsule 300 mg PO BID 10 Days Qty: 20 0RF Continued furosemide [Lasix] 20 mg tablet 20 mg PO DAILY Qty: 90 3RF buspirone 10 mg tablet 10 mg PO BID Qty: 180 0RF lisinopril 10 mg tablet 15 mg PO DAILY Qty: 135 3RF bupropion HCl 100 mg tablet 100 mg PO DAILY Qty: 90 0RF cholecalciferol (vitamin D3) 25 mcg (1,000 unit) capsule 25 mcg PO DAILY omega 3,6,9 combination no.7 92 mg (43 mg-22 [id number]) tablet,chewable 92 mg PO DAILY mecobalamin (vitamin B12) 1,000 mcg tablet,chewable 1,000 mcg PO DAILY Apple Cider Vinegar Plus [id number] tablet 1 tab PO DAILY magnesium citrate 125 mg capsule 125 mg PO DAILY calcium polycarbophil [Fiber Laxative (ca polycarbo)] 625 mg tablet 1,250 mg PO DAILY All Day Allergy (cetirizine) 10 mg capsule 10 mg PO DAILY PRN (Reason: Congestion) Discontinued ciprofloxacin HCl [Cipro] 500 mg tablet 500 mg PO BID 10 Days Qty: 20 0RF Rx Instructions: DID NOT START YET, PER PT'S MD. No Action Wegovy 0.25 mg/0.5 mL pen injector 0.25 mg subcut Q7D Qty: 2 0RF Rx Instructions: [id number] Discharge Orders: Discharge Order (Routine); Ordered 10/10/22 Ordered By: Lisa Pratt Admission Data Admit Date/Time: 10/10/22 00:14 Attending Provider: Saw Gomez Admit Provider: Aaron Dempsey Primary Care Provider: Nathaniel Khoury Other Providers: Aaron Dempsey Other Interventions: Discharge Summary Assessment (RN) Last Done: 10/10/22 17:54 Coding Level of Care Code None Diagnoses Left ureteral stone N20.1 Hydronephrosis of left kidney N13.30 DEBRA (acute kidney injury) N17.9 UTI (urinary tract infection) N39.0 HTN (hypertension) I10 Situational anxiety F41.8 Time Spent (min) 35 Comment admission same day as discharge
[2022-10-11] MEDS ORDERED: cefTRIAXone SODIUM 2,000 MG in DEXTROSE 5% 50 ML IV SCH (12:00)
== END 2022-10-10 18:20 | disposition home or self-care (01) ==
LOC: ED 22:33 → INTOOBSV 10-10 00:14 → 3W 10-10 00:14 → SUATTDRO 10-10 00:14 → 3W 10-10 02:18
DX: Z79.899 Other long term (current) drug therapy; N17.9 Acute kidney failure, unspecified; F41.8 Other specified anxiety disorders; Z79.85 Long-term (current) use of injectable non-insulin antidiabetic drugs; I10 Essential (primary) hypertension; Z20.822 Contact with and (suspected) exposure to COVID-19; N13.6 Pyonephrosis